=== PATIENT | male | born 1980 | race Caucasian/White ===

== ENCOUNTER 2022-07-07 01:45 | Emergency (ER) | payer SELFPAY ==
[2022-07-07 01:51] VITALS: BP 134/80; PULSE 93; RESP 18; TEMP 98.4; BMI 24.1
== END 2022-07-07 02:47 ==
LOC: FER 01:45
PROC: 0HQ1XZZ Repair Face Skin, External Approach (ICD-10-PCS; principal; 2022-07-07)
DX: S01.411A Laceration without foreign body of right cheek and temporomandibular area, initial encounter (principal); Y04.0XXA Assault by unarmed brawl or fight, initial encounter
CPT/HCPCS: 99282-25